=== PATIENT | male | born 1955 | race Two or more races ===

== ENCOUNTER 2022-12-07 09:06 | Outpatient (CLI) | payer OTHER ==
[~2022-12-07 09:06] MED LIST: ENALAPRIL MALEA20 MG
== END 2022-12-07 09:11 | disposition home or self-care (01) ==
LOC: RAD 09:06
PROVIDERS: ATTEND Physical Medicine & Rehabilitation
DX: M54.2 Cervicalgia (principal)

== ENCOUNTER 2023-02-18 09:31 | Outpatient (CLI) | payer OTHER | END 2023-02-18 09:39 | disposition home or self-care (01) | LOC: SONOGRAMA 09:31 | PROVIDERS: ATTEND Physical Medicine & Rehabilitation | DX: M25.531 Pain in right wrist (principal); G56.01 Carpal tunnel syndrome, right upper limb ==

== ENCOUNTER 2023-05-02 10:21 | Outpatient (CLI) | payer OTHER | END 2023-05-02 10:26 | disposition home or self-care (01) | LOC: RAD 10:21 | PROVIDERS: ATTEND Orthopaedic Surgery Hand Surgery | DX: M19.031 Primary osteoarthritis, right wrist (principal) | CPT/HCPCS: 73221 ==

== ENCOUNTER 2024-03-03 14:33 | Outpatient (CLI) | payer OTHER | END 2024-03-03 14:49 | disposition home or self-care (01) | LOC: TOM 14:33 | PROVIDERS: ATTEND Urology | DX: N20.0 Calculus of kidney (principal) ==

== ENCOUNTER 2024-08-24 10:06 | Outpatient (CLI) | payer OTHER | END 2024-08-24 10:08 | disposition home or self-care (01) | LOC: SONOGRAMA 10:06 | DX: M75.101 Unspecified rotator cuff tear or rupture of right shoulder, not specified as traumatic (principal); M25.511 Pain in right shoulder; M75.102 Unspecified rotator cuff tear or rupture of left shoulder, not specified as traumatic; M25.512 Pain in left shoulder ==

== ENCOUNTER 2025-06-14 07:43 | Emergency (ER) | payer OTHER ==
[~2025-06-14] VITALS: Ht 180.3 cm; Wt 94.8 kg
[2025-06-14] MEDS ORDERED: CEFDINIR125 MG/5 M (07:56)
[2025-06-14] MEDS ORDERED: GUAIFENESIN 600 MG TABLET.SA PO ONE (08:30)
[2025-06-14 12:08] LABS: COVID-19 AG NEGATIVE (NEGATIVE)
== END 2025-06-14 17:09 | disposition home or self-care (01) ==
LOC: ER 07:44
PROVIDERS: Emergency Medicine
DX: J10.1 Influenza due to other identified influenza virus with other respiratory manifestations (principal); I10 Essential (primary) hypertension; J32.8 Other chronic sinusitis; Z20.822 Contact with and (suspected) exposure to COVID-19